=== PATIENT | male | born 1980 | race Caucasian/White ===

== ENCOUNTER 2018-07-01 13:48 | Emergency (ER) | payer OTHER, MEDICAID, SELFPAY ==
[2018-07-01 13:53] VITALS: BP 139/83; PULSE 119; RESP 22; TEMP 36.4; O2SAT 97; BMI 46.6
--- NOTE | 2018-07-01 17:09 | PC.NURSE ---
pt reports, since tuesday, with mid back pain, left hip , down to left leg. pt reports, second rounds of prednisone, today day 4, also with hydrocodone without relief, seen in [facility] ER last , given muscle relaxant and shot, without relief. felt like knife thru the back, with diarrhea last night and now with urine leaking onset yesterday. denies fever, but has cold and hot. denies nausea or vomiting.
[2018-07-01 17:13] VITALS: BP 120/68; PULSE 122; RESP 20; O2SAT 98
--- NOTE | 2018-07-01 17:28 | DI.CT.S_ITS ---
PROCEDURE: CT LUMBAR SPINE WO CON INDICATIONS: low back pain, left leg radiculopathy TECHNIQUE: Noncontrast 3 mm thick sections acquired from the T12 level to the sacrum. Sagittal and coronal reformats were constructed. For radiation dose reduction, the following was used: automated exposure control. COMPARISON: [facility], CR, XR LUMBAR SPINE 2 OR 3 VIEWS, 05/29/2018, 9:57. [facility], US, US ABDOMEN LIMITED, 05/22/2018, 12:09. [facility], CT, CT ABDOMEN PELVIS WITH CONTRAST, 05/22/2018, 10:11. [facility], CT, KIDNEY/ URETER/BLADDER, 07/08/2017, 12:27. FINDINGS: Image quality: Excellent. Bones: There is normal bony alignment. No acute vertebral body compression fractures. There is an inferior endplate Schmorl's node of the L4 vertebral body. Central spinal caliber is of normal overall caliber. No pars defects. There is severe loss of intervertebral disc space height with adjacent reactive endplate changes at L4-L5. There is mild loss of intervertebral disc space height at the remaining lumbar levels. Multilevel anterior osteophyte formation noted. There is moderate facet arthropathy at L4-L5 and L5-S1, worst at L5-S1. No moderate or severe osseous neural foraminal narrowing identified. Soft tissues: There is a small 2.0 cm exophytic hypoattenuating lesion arising from the anterior right kidney which is stable in appearance to comparison exam of 07/08/2017, and was found to represent a renal cortical cyst on comparison ultrasound of 05/22/19. IMPRESSION: Moderate multilevel degenerative changes of the lumbar spine, worst at L4-L5 and L5-S1. Dictated by: Jb Kent M.D. on 07/01/2018 at 18:28 Approved by: Jb Kent M.D. on 07/01/2018 at 18:39
--- NOTE | 2018-07-01 17:33 | ED_ITS ---
HPI - Back Pain/Injury General Chief Complaint: Back Pain/Injury Stated Complaint: PAIN IN SPINE DOWN LEFT LEG Time Seen by Provider: 07/01/18 17:09 Source: patient and family () Mode of arrival: ambulatory Limitations: no limitations History of Present Illness HPI Narrative: This is a 37-year-old male comes to the emergency department with complaint of pain in his lower back and extending into his left leg down to the foot. Patient states that pain has been going on for about a week. Patient has a history of chronic back pain he states that this most recent flare happened when he was getting up out of a chair. He has never had back surgery. He was seen Tuesday by his primary and given prednisone as well as hydrocodone. He states last time he received steroids was helpful but this time it has not been. He was seen at [facility] in telling him and given Toradol as well as Ativan there which was not particularly helpful and discharged. Patient states he is using Flexeril and he thinks maybe today as a teen for muscle relaxation. He states these are not controlling his pain at this time. Patient was pacing and quite uncomfortable unable to sit in the waiting room. Related Data Home Medications Medication Instructions Recorded Confirmed acetaminophen 500 mg PO PRN PRN #0 11/22/16 gemfibrozil 600 mg PO BIDAC #0 11/22/16 lisinopril 20 mg PO QDAY #0 11/22/16 metformin 850 mg PO TIDCC #0 11/22/16 empagliflozin [Jardiance] 25 mg PO QDAY #0 07/08/17 exenatide [Byetta] 0.02 ml SQ BIDAC #0 07/08/17 Previous Rx's Medication Instructions Recorded cephalexin [Keflex] 500 mg PO BID 5 Days #0 cap 07/08/17 diazepam [Valium] 5 mg PO TID-QID PRN #10 tab 07/01/18 meloxicam [Mobic] 7.5 mg PO BID #14 tab 07/01/18 oxycodone-acetaminophen [Percocet] 1 tab PO Q4-6H PRN #7 tab 07/01/18 Allergies Allergy/AdvReac Type Severity Reaction Status Date / Time Penicillins [PENICILLINS] Allergy Intermediate Unverified 07/01/18 13:58 Sulfa (Sulfonamide Allergy Intermediate Unverified 07/01/18 13:58 Antibiotics) [SULFA (SULFONAMIDE ANTIBIOTICS)] Review of Systems Review of Systems ROS Unobtainable: All systems reviewed & are unremarkable except as noted in HPI and below Constitutional Denies chills, Denies fever(s) and Reports weakness ENT Ears, Nose, Mouth, and Throat: Denies neck pain Gastrointestinal Gastrointestinal: Denies fecal incontinence Genitourinary Denies urinary frequency, Denies urinary hesitancy, Reports urinary incontinence (patient unsure) and Denies urinary urgency Musculoskeletal Reports back pain, Denies limited range of motion, Reports muscle weakness, Denies neck pain, Reports numbness, Reports radiating pain into limb (Left leg) and Reports tingling Integumentary/Breasts Denies rash Neurologic Reports numbness, Reports tingling and Reports weakness PFSH Social History Smoking Status: Current every day smoker Social History Smoking Status: Current every day smoker Exam Narrative Exam Narrative: GENERAL: Alert and oriented x three, obese male HEENT: Head normocephalic, atraumatic, EOMI, pupils reactive, face symmetric, moist mucous membranes NECK: Supple, full range of motion CARDIOVASCULAR: Regular rate and rhythm without murmurs, rubs or gallops. RESPIRATORY: Breath sounds equal bilaterally, no wheezes rales or rhonchi. ABDOMEN: Soft, nontender. Normoactive bowel sounds all 4 quadrants. No guarding or rebound, rigidity, no mass : No CVA tenderness in moderate distress. BACK: No cervical, thoracic or lumbar vertebral point tenderness. Generalized tenderness on the back. No redness, no swelling. Patient is resting on his stomach. Patient has decreased range of motion. Patient's gait is antalgic. Rectal exam patient has normal sphincter tone. Muscle strength is 5/5 in lower extremities with flexion extension of the lower legs, patient has slightly decreased plantar flexion extension in the right foot. DTRs are 2/4 and lower extremities. Dorsalis pedis and tibialis pulses are 2+ and lower extremities. Sensation is intact in the lower extremities. EXTREMITIES: Normal range of motion, no clubbing or edema. Neurovascularly intact NEUROLOGICAL: Cranial nerves II through XII grossly intact. Moving all extremities SKIN: Warm, dry, no petechiae, no rashes or lesions. Initial Vital Signs Initial Vital Signs: Vital Signs Temperature 97.6 F 07/01/18 13:53 Pulse Rate 119 H 07/01/18 13:53 Respiratory Rate 22 07/01/18 13:53 Blood Pressure 139/83 07/01/18 13:53 Pulse Oximetry 97 07/01/18 13:53 Course Orders Ordered: Discontinued Medications Diazepam (Valium) 5 mg PO NOW ONE Stop: 07/01/18 17:29 Last Admin: 07/01/18 17:43 Dose: 5 mg Morphine Sulfate (Morphine) 4 mg IM NOW ONE Stop: 07/01/18 17:29 Last Admin: 07/01/18 17:43 Dose: 4 mg Oxycodone/Acetaminophen (Endocet 5/325 Prepack) 1 bottle MISC SEEINSTR ONE Stop: 07/01/18 19:11 Last Admin: 07/01/18 19:23 Dose: 1 bottle Vital Signs - 8 hr 07/01/18 13:53 07/01/18 17:13 Temperature 97.6 F Pulse Rate 119 H 122 H Respiratory Rate 22 20 Blood Pressure 139/83 Blood Pressure [Left Arm] 120/68 Pulse Oximetry 97 98 MDM - Back Pain/Injury MDM Narrative Medical decision making narrative: Patient has some slight decreased with plantar flexion and dorsiflexion on exam. Rectal tone is normal. He has full strength with flexion extension of his lower leg, and patient was able to amb ulate although with an antalgic gait. Discussed with patient we do not have MRI available as he is having he thinks possibly some urinary incontinence issues. We discussed doing CT to see if there is any clear signs of impingement. Patient is comfortable with the plan at this time. We did discuss concern for any kind of spinal cord impingement. CT shows degernative changes and Schmorl's node at L4, patient has mild weakness in foot and possible urinary incontinence although during further discussion he is unsure if it may have been sweat. Plan for follow up outpatient, given narcotic pain control, mobic and muscle relaxant and discussed the MRI is still appropriate for next step. PCP is process of obtaining a prior authorization. Discussed red flag symptoms and reasons to return. Discharge Plan Departure Patient Disposition: Home Clinical Impression: Back pain Qualifiers: Back pain location: low back pain Chronicity: unspecified Back pain laterality: left Sciatica presence: with sciatica Sciatica laterality: sciatica of left side Qualified Code(s): M54.42 - Lumbago with sciatica, left side Discharge Date/Time: 07/01/18 19:26 Interventions: ED Discharge Assessment Last Done: 07/01/18 19:25 Instructions: DI for Low Back Pain Activity Restrictions/Additional Instructions: Call Tuesday morning for follow up with orthopedic surgery. Also call your primary care physician for recheck and to schedule MRI. Your CT shows degenerative changes and Schmorl's node in the L4 vertebral body. Continue medications as prescribed, these medications can make you sleepy do not drive, perform hazards activities or make any major decisions while taking them. Return to the emergency department for rapidly worsening back pain, loss of bowel or bladder control, new numbness, weakness, loss of sensation, inability to move her legs secondary to weakness or other new or concerning symptoms. Prescriptions: New meloxicam [Mobic] 7.5 mg tablet 7.5 mg PO BID Qty: 14 RF: 0 oxycodone-acetaminophen [Percocet] 5-325 mg tablet 1 tab PO Q4-6H PRN (Reason: pain) Qty: 7 RF: 0 diazepam [Valium] 5 mg tablet 5 mg PO TID-QID PRN (Reason: muscle spasm) Qty: 10 RF: 0 No Action lisinopril 20 MG tablet 20 mg PO QDAY Qty: 0 RF: 0 gemfibrozil 600 MG tablet 600 mg PO BIDAC Qty: 0 RF: 0 metformin 850 MG tablet 850 mg PO TIDCC Qty: 0 RF: 0 acetaminophen 500 MG tablet 500 mg PO PRN PRNQty: 0 RF: 0 empagliflozin [Jardiance] 25 MG tablet 25 mg PO QDAY Qty: 0 RF: 0 exenatide [Byetta] 5 MCG/0.02 ML pen injector 0.02 ml SQ BIDAC Qty: 0 RF: 0 cephalexin [Keflex] 500 MG capsule 500 mg PO BID 5 Days Qty: 0 RF: 0 Referrals: Taty Hawk MD [Physician] - Stand Alone Forms: Work Release Note
[2018-07-01] MEDS: diazePAM 5 MG TABLET PO (17:43)
[2018-07-01] MEDS: MORPHINE 4 MG/ML INJ IM (17:43)
[2018-07-01 19:11] VITALS: BP 112/69; PULSE 83; RESP 16; TEMP 36.7; O2SAT 95
[2018-07-01] MEDS: OXYCODONE/APAP 5/325 PREPACK 1 BOTTLE MISC (19:23)
== END 2018-07-01 19:26 | disposition home or self-care (01) ==
PROVIDERS: Emergency Provider Emergency Medicine
DX: M54.42 Lumbago with sciatica, left side (principal)
CPT/HCPCS: 72131; 96372; 99283; 99284; J2270

== ENCOUNTER 2018-07-03 10:44 | Emergency (ER) | payer OTHER, MEDICAID, SELFPAY ==
[2018-07-03 10:54] VITALS: BP 103/64; PULSE 95; RESP 23; TEMP 37; O2SAT 100; BMI 47.5
--- NOTE | 2018-07-03 11:05 | DI.MRI.S_ITS ---
PROCEDURE: MR LUMBAR SPINE WO CON INDICATIONS: back pain, occasional incontinence, pain left leg TECHNIQUE: Noncontrast sagittal T1 spin echo and T2 fast echo, sagittal STIR, axial T1 and T2 fast spin echo through the lumbar spine. In cases with scoliosis, additional coronal T2 fast spin echo may be performed. COMPARISON: [facility], CT, KIDNEY/ URETER/BLADDER, 07/08/2017, 12:27. [facility], CT, CT ABDOMEN PELVIS WITH CONTRAST, 05/22/2018, 10:11. [facility], CR, XR LUMBAR SPINE 2 OR 3 VIEWS, 05/29/2018, 9:57. FINDINGS: Image quality: Excellent. Alignment and Curvature: There is normal bony alignment. Bone Marrow: Marrow is of normal overall signal. No acute vertebral body compression fractures. Spinal Cord: Conus medullaris terminates at the T12 level. Visualized cord demonstrates normal signal and size. Paraspinous Soft Tissues: No paravertebral masses. L1-L2: Mild disc desiccation. Broad-based disc bulge. Mild facet ligamentum flavum hypertrophy. No canal stenosis. No neural foraminal narrowing. L2-L3: Mild disc desiccation and height loss. Broad-based disc bulge. Mild facet ligamentum flavum hypertrophy. No canal stenosis. No foraminal stenosis. L3-L4: Mild disc desiccation and height loss. Broad-based disc bulge. Moderate facet ligamentum flavum hypertrophy. There is a 1.0 x 0.7 x 1.5 cm left paracentral disc protrusion which displaces the thecal sac rightward and abuts the exiting nerve root. No neural foraminal stenosis. L4-L5: Severe disc desiccation and height loss. Severe facet ligamentum flavum hypertrophy. Mild canal stenosis. No neural foraminal narrowing. L5-S1: Mild disc desiccation. Broad-based disc bulge. Moderate facet ligamentum flavum hypertrophy. No canal stenosis. No neural foraminal narrowing. IMPRESSION: 1. Left paracentral L3-4 disc protrusion with resultant narrowing of the canal, with rightward displacement of the thecal sac, and abutment of the exiting left nerve root. This finding was discussed with Dr. Beltran at 1:37 PM on 07/03/18. 2. Disc desiccation and height loss of the lumbar spine most severe at L4-5. 3. No other canal stenosis or foraminal narrowing of the lumbar spine. Dictated by: Mariama Baum M.D. on 07/03/2018 at 13:34 Approved by: Mariama Baum M.D. on 07/03/2018 at 13:42
--- NOTE | 2018-07-03 11:27 | ED_ITS ---
HPI - Back Pain/Injury General Chief Complaint: Back Pain/Injury Stated Complaint: WORSENING BLADDER CONTROL,FEELING INTO LT LEG GONE Time Seen by Provider: 07/03/18 11:05 Source: patient and family () Mode of arrival: ambulatory Limitations: no limitations History of Present Illness HPI Narrative: This is a 37-year-old gentleman comes to the emergency department with complaint of back pain. The patient was seen by myself over the weekend. He was encouraged to return if he was having some issues with possible urinary incontinence as well as a little bit of weakness in his foot. He states over the weekend he has continued to have more frequent dribbling of urine, patient has not had any fecal incontinence. He feels like his left lower leg has gone more numb in entirety was having some tingling before and he is noting some sort of saddle anesthesia or numbness in the groin. Patient has not had prior back surgeries but did have prior back injuries. Patient has not any fevers no cold cough congestion, no chest pain or shortness of breath. He was sent on some additional medication for pain which he states is not controlling it well but is better than when he had been on before. Related Data Home Medications Medication Instructions Recorded Confirmed acetaminophen 500 mg PO PRN PRN #0 11/22/16 07/03/18 gemfibrozil 600 mg PO BIDAC #0 11/22/16 07/03/18 lisinopril 20 mg PO QPM #0 11/22/16 07/03/18 metformin 850 mg PO TIDCC #0 11/22/16 07/03/18 Jardiance 25 mg PO DAILY #0 07/08/17 07/03/18 dulaglutide [Trulicity] 1.2 mg SUBCUT QWEEK 07/03/18 07/03/18 hydrocodone-acetaminophen 1 tab PO PRN PRN 07/03/18 07/03/18 pioglitazone 30 mg PO DAILY 07/03/18 07/03/18 sildenafil 1 - 3 tab PO DIRECTED 07/03/18 07/03/18 tizanidine 4 mg PO BID 07/03/18 07/03/18 Previous Rx's Medication Instructions Recorded diazepam [Valium] 5 mg PO TID-QID PRN #10 tab 07/01/18 meloxicam [Mobic] 7.5 mg PO BID #14 tab 07/01/18 oxycodone-acetaminophen [Percocet] 1 tab PO Q4-6H PRN #7 tab 07/01/18 diazepam [Valium] 5 mg PO TID-QID PRN #20 tab 07/03/18 methylprednisolone [Medrol (Michele)] See Rx Instructions .ROUTE 07/03/18 .COMPLEX #21 each oxycodone-acetaminophen [Percocet] 1 tab PO Q4-6H PRN #20 tab 07/03/18 Allergies Allergy/AdvReac Type Severity Reaction Status Date / Time Penicillins [PENICILLINS] Allergy Intermediate Verified 07/03/18 11:27 Sulfa (Sulfonamide Allergy Intermediate Verified 07/03/18 11:27 Antibiotics) [SULFA (SULFONAMIDE ANTIBIOTICS)] Review of Systems Constitutional Denies chills, Denies fever(s), Denies frequent falls and Reports weakness ENT Ears, Nose, Mouth, and Throat: Denies nasal congestion Cardiovascular Denies chest pain, Denies syncope, Denies dyspnea and Denies dyspnea on exertion Respiratory Denies cough, Denies dyspnea and Denies dyspnea on exertion Gastrointestinal Gastrointestinal: Reports fecal incontinence (seepage, no tram incontinence) Genitourinary Reports urinary incontinence (dribbling) Musculoskeletal Reports as per HPI, Reports abnormal gait, Reports back pain, Reports limited range of motion, Reports muscle weakness (Left leg), Reports numbness (Left leg), Reports radiating pain into limb (Left leg) and Reports tingling Integumentary/Breasts Denies rash Neurologic Reports abnormal gait, Denies syncope, Denies frequent falls, Reports numbness (Left leg), Reports radicular pain, Reports tingling and Reports weakness PFSH Medical History Chronic back pain (Acute) Diabetes (Acute) Hypertension (Acute) Social History marital status: Smoking Status: Current every day smoker Social History marital status: Smoking Status: Current every day smoker Exam Narrative Exam Narrative: GENERAL: Alert and oriented x three, obese male in moderate distress. HEENT: Head normocephalic, atraumatic, EOMI, pupils reactive, face symmetric, moist mucous membranes NECK: Supple, full range of motion CARDIOVASCULAR: Regular rate and rhythm without murmurs, rubs or gallops. RESPIRATORY: Breath sounds equal bilaterally, no wheezes rales or rhonchi. ABDOMEN: Soft, nontender. Normoactive bowel sounds all 4 quadrants. No guarding or rebound, rigidity, no mass, positive rectal tone. : No CVA tenderness BACK: No cervical, thoracic or lumbar vertebral point tenderness. Patient has decreased range of motion. Patient's gait is antalgic. Rectal exam is normal tone. Muscle strength is 5/5 in right lower extremity, 4/5 in left lower extremity, patient is 4/5 dorsiflexion/plantarflexion on left, 5/5 on right. 2+ pulses lower extremities. Patient is standing during evaluation and sits on bed but quite uncomfortable trying to be seated. Patient has sensation to touch in both lower extremities. No saddle anesthesia on exam. EXTREMITIES: See above. NEUROLOGICAL: Cranial nerves II through XII grossly intact. Moving all extremities. SKIN: Warm, dry, no petechiae, no rashes or lesions. Initial Vital Signs Initial Vital Signs: Vital Signs Temperature 98.6 F 07/03/18 10:54 Pulse Rate 95 H 07/03/18 10:54 Respiratory Rate 23 07/03/18 10:54 Blood Pressure 103/64 07/03/18 10:54 Pulse Oximetry 100 07/03/18 10:54 Course Orders Ordered: ED Orders 07/03/18 11:05 MR lumbar spine wo con Stat 07/03/18 11:22 Complete Blood Count AUTO DIFF Stat Comprehensive Metabolic Panel Stat 07/03/18 13:25 Urine Microscopic Stat Discontinued Medications Dexamethasone (Decadron) 10 mg IV NOW ONE Stop: 07/03/18 13:44 Last Admin: 07/03/18 13:49 Dose: 10 mg Diazepam (Valium) 5 mg PO NOW ONE Stop: 07/03/18 11:37 Last Admin: 07/03/18 11:46 Dose: 5 mg Hydromorphone HCl (Dilaudid) 1 mg IV NOW ONE Stop: 07/03/18 13:44 Last Admin: 07/03/18 13:49 Dose: 1 mg Morphine Sulfate (Morphine) 4 mg IV NOW ONE Stop: 07/03/18 11:37 Last Admin: 07/03/18 11:46 Dose: 4 mg Vital Signs - 8 hr 07/03/18 13:00 07/03/18 14:45 Pulse Rate 78 Respiratory Rate 18 19 Blood Pressure [Right Wrist] 92/63 144/82 H Pulse Oximetry 98 96 MDM - Back Pain/Injury Lab Data Attestation: I reviewed the patient's lab results. Result diagrams: 07/03/18 11:22 07/03/18 11:22 Lab Results 07/03/18 07/03/18 07/03/18 Range/Units 11:22 11:22 13:25 WBC 8.4 (4.5-11.0) X10^3/uL RBC 5.02 (4.5-5.9) X10^6/uL Hgb 15.8 (13.5-17.5) g/dL Hct 45.6 (41-53) % MCV 90.7 (80-100) fL MCH 31.5 (26-34) PG MCHC 34.8 (30-36) % RDW 13.2 (11.6-14.8) % Plt Count 181 (150-400) X10^3/uL Neut % (Auto) Not Reportable Lymph % (Auto) Not Reportable [place] % (Auto) Not Reportable Eos % (Auto) Not Reportable Baso % (Auto) Not Reportable Lymph # (Auto) Not Reportable [place] # (Auto) Not Reportable Baso # (Auto) Not Reportable Total Counted 100 Seg Neutrophils % 62.0 (38-70) % Band Neutrophils % 4.0 (3-7) % Lymphocytes % (Manual) 24.0 L (25-45) % Atypical Lymphs % 2.0 H ( - 0) % Monocytes % (Manual) 5.0 (2-11) % Eosinophils % (Manual) 1.0 L (2-4) % Basophils % (Manual) 1.0 (0-1) % Metamyelocytes % 1.0 H (-0) % Neutrophils # (Manual) 5544 (8083-5182) /uL RBC Morphology Normal morphology Sodium 138 (137-145) mmol/L Potassium 4.3 (3.4-5.1) mmol/L Chloride 106 (98-107) mmol/L Carbon Dioxide 21 L (22-32) mmol/L BUN 28 H (9-20) mg/dL Creatinine 0.90 (0.66-1.25) mg/dL Estimated GFR > 60.0 (>60) mL/min BUN/Creatinine Ratio 31.1 H (6-22) Glucose 127 H (70-100) mg/dL Calcium 9.3 (8.4-10.2) mg/dL Total Bilirubin 0.3 (0.2-1.3) mg/dL AST 14 L (17-59) IU/L ALT 24 (21-72) IU/L Alkaline Phosphatase 61 (38-126) U/L Total Protein 7.1 (6.3-8.2) g/dL Albumin 4.2 (3.5-5.0) g/dL Globulin 2.9 (1.7-4.1) g/dL Albumin/Globulin Ratio 1.4 (1.0-2.8) Urine RBC 0-1/hpf (0-5/HPF) Urine WBC 0-1/hpf (0-5/HPF) Ur Squamous Epith Cells 0-1 /hpf Urine Bacteria Occasional (0-1) (None) Urine Sperm Few Ur Culture Indicated? Cult not indicated Urine Dip Bedside Urine Glucose 500 mg/dl Bedside Urine Bilirubin - Negative Bedside Urine Ketone - Negative Urine Specific [place] 1.020 Bedside Urine Occult Blood +/- Bedside Urine pH 6.0 Bedside Urine Protein +/- 15 Bedside Urine Urobilinogen - Negative Bedside Urine Nitrite - Negative Bedside Urine Leukocytes - Negative Esterase Imaging Data MRI Lumbar spine: Radiologist's impression: [place] [address] Magnetic Resonance Report Signed Patient: Jany Hoover LMR#: [id number] : 1980Acct:[id number] Age/Sex: 37 / MDate of Service: 07/03/18 Loc: ED Accession Number: [id number] Procedure: MR lumbar spine wo con Ordering Provider: Kelsey Beltran D.O. PROCEDURE: MR LUMBAR SPINE WO CON INDICATIONS: back pain, occasional incontinence, pain left leg TECHNIQUE: Noncontrast sagittal T1 spin echo and T2 fast echo, sagittal STIR, axial T1 and T2 fast spin echo through the lumbar spine. In cases with scoliosis, additional coronal T2 fast spin echo may be performed. COMPARISON: [facility], CT, KIDNEY/ URETER/BLADDER, 07/08/2017, 12:27. [facility], CT, CT ABDOMEN PELVIS WITH CONTRAST, 05/22/2018, 10:11. [facility], CR, XR LUMBAR SPINE 2 OR 3 VIEWS, 05/29/2018, 9:57. FINDINGS: Image quality: Excellent. Alignment and Curvature: There is normal bony alignment. Bone Marrow: Marrow is of normal overall signal. No acute vertebral body compression fractures. Spinal Cord: Conus medullaris terminates at the T12 level. Visualized cord demonstrates normal signal and size. Paraspinous Soft Tissues: No paravertebral masses. L1-L2: Mild disc desiccation. Broad-based disc bulge. Mild facet ligamentum flavum hypertrophy. No canal stenosis. No neural foraminal narrowing. L2-L3: Mild disc desiccation and height loss. Broad-based disc bulge. Mild facet ligamentum flavum hypertrophy. No canal stenosis. No foraminal stenosis. L3-L4: Mild disc desiccation and height loss. Broad-based disc bulge. Moderate facet ligamentum flavum hypertrophy. There is a 1.0 x 0.7 x 1.5 cm left paracentral disc protrusion which displaces the thecal sac rightward and abuts the exiting nerve root. No neural foraminal stenosis. L4-L5: Severe disc desiccation and height loss. Severe facet ligamentum flavum hypertrophy. Mild canal stenosis. No neural foraminal narrowing. L5-S1: Mild disc desiccation. Broad-based disc bulge. Moderate facet ligamentum flavum hypertrophy. No canal stenosis. No neural foraminal narrowing. IMPRESSION: 1. Left paracentral L3-4 disc protrusion with resultant narrowing of the canal, with rightward displacement of the thecal sac, and abutment of the exiting left nerve root. This finding was discussed with Dr. Beltran at 1:37 PM on 07/03/18. 2. Disc desiccation and height loss of the lumbar spine most severe at L4-5. 3. No other canal stenosis or foraminal narrowing of the lumbar spine. Dictated by: Mariama Baum M.D. on 07/03/2018 at 13:34 Approved by: Mariama Baum M.D. on 07/03/2018 at 13:42 MDM Narrative Medical decision making narrative: Patient was seen by myself on 07/01/2018. We discussed that his symptoms he was describing or concerning he might be developing some knee issues on the night. MRI was not available we did discuss transfer for MRI at that time but patient deferred negative CT scan which did show changes to the the L4 region in particular. Patient was asked return if any worsening of his symptoms for MRI. Patient has had some increased dribbling of urine, he has had increasing pain feels like his left leg is numb and its entirety. He is feels like he is having a little bit more weakness. MRI was ob tained. Shows disc protrusion, there is displacement of the thecal sac rightward and abutting the exiting nerve root. No for neural foraminal stenosis left paracentral L3-4 disc protrusion with narrowing of canal. Spoke with Dr. Dodson from orthopedic surgery regarding MRI which was reviewed. He feels that patient's risk for cauda equina is a virtually nil he does state that he is definitely having some protrusion onto the nerve root that would affect that leg. Patient and I discussed Dr. Dodson can see him later this week to get him in for surgery. He would recommend Medrol Dosepak. Discussed with patient they are comfortable with this plan. Discussed red flag signs/symptoms, etc. Discharge Plan Departure Patient Disposition: Home Clinical Impression: Lumbar radiculopathy, Protrusion of intervertebral disc Discharge Date/Time: 07/03/18 14:59 Interventions: ED Discharge Assessment Last Done: 07/03/18 14:58 Instructions: DI for Lumbar Radiculopathy Activity Restrictions/Additional Instructions: Call the orthopedic surgery office to set up an appointment. Let them know Dr. Dodson would like you seen this week to evaluate for surgery. Continue medications as prescribed. Stop prednisone and start medrol dose pack. Return to ER for fevers, loss of bladder or bowel control, inability to lift or move your leg, rapidly worsening symptoms or other new or concerning symptoms. Prescriptions: New oxycodone-acetaminophen [Percocet] 5-325 mg tablet 1 tab PO Q4-6H PRN (Reason: pain) Qty: 20 RF: 0 diazepam [Valium] 5 mg tablet 5 mg PO TID-QID PRN (Reason: muscle spasm) Qty: 20 RF: 0 methylprednisolone [Medrol (Michele)] 4 mg tablets,dose pack See Rx Instructions .ROUTE .COMPLEX Qty: 21 RF: 0 No Action lisinopril 20 MG tablet 20 mg PO QPM Qty: 0 RF: 0 gemfibrozil 600 MG tablet 600 mg PO BIDAC Qty: 0 RF: 0 metformin 850 MG tablet 850 mg PO TIDCC Qty: 0 RF: 0 acetaminophen 500 MG tablet 500 mg PO PRN PRN (Reason: pain) Qty: 0 RF: 0 Jardiance 25 MG tablet 25 mg PO DAILY Qty: 0 RF: 0 pioglitazone 30 mg tablet 30 mg PO DAILY RF: 0 tizanidine 4 mg tablet 4 mg PO BID RF: 0 hydrocodone-acetaminophen 5-325 mg tablet 1 tab PO PRN PRN (Reason: pain) RF: 0 Trulicity 1.5 mg/0.5 mL pen injector 1.2 mg subcut QWEEK RF: 0 sildenafil 1 - 3 tab PO DIRECTED RF: 0 meloxicam [Mobic] 7.5 mg tablet 7.5 mg PO BID Qty: 14 RF: 0 oxycodone-acetaminophen [Percocet] 5-325 mg tablet 1 tab PO Q4-6H PRN (Reason: pain) Qty: 7 RF: 0 diazepam [Valium] 5 mg tablet 5 mg PO TID-QID PRN (Reason: muscle spasm) Qty: 10 RF: 0 Referrals: Alfredo Dodson MD [Physician] - Stand Alone Forms: Work Release Note
[2018-07-03] MEDS: diazePAM 5 MG TABLET PO (11:46)
[2018-07-03] MEDS: MORPHINE 4 MG/ML INJ IV (11:46)
[2018-07-03 11:48] LABS: Alanine Aminotransferase 24 IU/L (21-72); Albumin 4.2 g/dL (3.5-5.0); Albumin Globulin Ratio 1.4 (1.0-2.8); Alkaline Phosphatase 61 U/L (38-126); Aspartate Aminotransferase 14 IU/L (17-59); BUN Creatinine Ratio 31.1 (6-22); Bilirubin Total 0.3 mg/dL (0.2-1.3); Blood Urea Nitrogen 28 mg/dL (9-20); Calcium 9.3 mg/dL (8.4-10.2); Carbon Dioxide 21 mmol/L (22-32); Chloride 106 mmol/L (98-107); Estimated Glomerular Filt Rate > 60.0 mL/min (>60); Globulin 2.9 g/dL (1.7-4.1); Glucose 127 mg/dL (70-100); HEMOLYSIS < 15 (0-50); Potassium 4.3 mmol/L (3.4-5.1); Sodium 138 mmol/L (137-145); Total Protein 7.1 g/dL (6.3-8.2)
[2018-07-03 11:51] LABS: Hematocrit 45.6 % (41-53); Hemoglobin 15.8 g/dL (13.5-17.5); Mean Corpuscular HGB Conc 34.8 % (30-36); Mean Corpuscular Hemoglobin 31.5 PG (26-34); Mean Corpuscular Volume 90.7 fL (80-100); Platelet Count 181 X10^3/uL (150-400); Red Blood Cell Count 5.02 X10^6/uL (4.5-5.9); Red Cell Distribution Width 13.2 % (11.6-14.8); White Blood Cell Count 8.4 X10^3/uL (4.5-11.0)
[2018-07-03 12:00] VITALS: BP 90/64; PULSE 83; RESP 18; O2SAT 97
[2018-07-03 12:23] LABS: Add Manual Diff / Slide Review YES
[2018-07-03 12:56] LABS: Neutrophils Absolute Manual 5544 /uL (3000-5900); RBC Morphology Normal Morphology; Total Cells Counted 100
[2018-07-03 13:00] VITALS: BP 92/63; RESP 18; O2SAT 98
[2018-07-03] MEDS: DEXAMETHASONE 10 MG/ML VIAL IV (13:49)
[2018-07-03] MEDS: HYDROMORPHONE 1 MG INJ IV (13:49)
[2018-07-03 14:05] LABS: RBC Urine 0-1/HPF (0-5/HPF); Squamous Epithelial Cell Urine 0-1 /HPF; WBC Urine 0-1/HPF (0-5/HPF)
[2018-07-03 14:07] LABS: Bacteria Urine Occasional (0-1); Culture Indicated Urine Cult Not Indicated; Sperm Urine FEW
[2018-07-03 14:45] VITALS: BP 144/82; PULSE 78; RESP 19; O2SAT 96
== END 2018-07-03 14:59 | disposition home or self-care (01) ==
PROVIDERS: Emergency Provider Emergency Medicine
DX: M54.16 Radiculopathy, lumbar region (principal); M51.27 Other intervertebral disc displacement, lumbosacral region
CPT/HCPCS: 36591; 72148; 80053; 81003; 81015; 85025; 96374; 96375; 99283; 99284; J1100; J1170; J2270

== ENCOUNTER 2018-08-11 13:19 | Day surgery (SDC) | payer OTHER, MEDICAID, SELFPAY ==
[2018-08-03 13:12] VITALS: BMI 47.5
[2018-08-11] VITALS (7 sets, daily range): BP systolic 94–148; BP diastolic 50–95; PULSE 76–105; RESP 11–16; TEMP 36.2–36.9; O2SAT 94–97; BMI 49.7
--- NOTE | 2018-08-11 | DI.RAD.S_ITS ---
PROCEDURE: XR LUMBAR SPINE 2-3V INDICATIONS: L3-4 MICRODISCECTOMY LEFT TECHNIQUE: 2 views of the lumbar spine were acquired. COMPARISON: None. FINDINGS: 2 spot fluoroscopic intraoperative images demonstrating a surgical instrument with the tip projecting in the posterior paraspinal soft tissues at the level of the L3-L4 disc space. Dictated by: Drew Handley M.D. on 08/11/2018 at 16:59 Approved by: Drew Handley M.D. on 08/11/2018 at 16:59
[2018-08-11] MEDS: LACTATED RINGERS 1,000 ML 42 ML IV (13:57)
--- NOTE | 2018-08-11 14:38 | PM.PREOP ---
Pre-operative Note Interval Note History & Physical reviewed/Exam performed by Physician: Yes Changes to H&P: No
[2018-08-11] MEDS: CLINDAMYCIN 900 MG/50 ML PIGGYBACK 50 MG IV (14:55)
--- NOTE | 2018-08-11 15:30 | SUR.OPER ---
Prone on spine table, head in foam head support, padded chest and pelvic supports, gel pad at knees, lower legs supported by pillows; nipples, genitalia and toes free of pressure, arms secured on foam padded arm boards at <90 degrees abduction. Tape over blanket at thigh secured to table.
[2018-08-11] MEDS: methylPREDNISolone acet DEPO 40 MG/ML VIAL INJ (15:38)
[2018-08-11] MEDS: BUPIVACAINE 0.25% W/ EPI 50 ML VIAL INJ (15:39)
--- NOTE | 2018-08-11 16:27 | PM.OP.1 ---
Operative Date/Time/Diagnoses Date of procedure: 08/11/18 Time of procedure: 14:27 Pre-op diagnosis: 1. L3-4 disc herniation 2. L3-4 spinal stenosis Post-op diagnosis: same Procedure & Clinicians Procedure: 1. L3-4 hemilaminectomy 2. Utilization of microsurgical technique and operating microscope Same procedure as scheduled: Yes Indications: Patient has been having chronic back pain and worsening lumbar radiculopathy. Patient failed multiple conservative management with worsening pain weakness and numbness in his lower extremity. Patient has been having difficulty performing activity of daily living. After discussing risks benefits of treatment options, patient elected proceed with surgery. Surgeon: Alfredo Dodson Lead Technologist In Cytogenetics: Keshia Alba Click Yes if Unassisted: No Anesthesia Type: General Operative Notes Closure Type: primary Specimen(s): none sent Estimated Blood Loss (mL): 10 Blood products transfused: none Procedure in detail: Patient was seen in the preoperative area. Risks and benefits of the surgery was discussed with the patient. Informed consent was obtained from the patient and placed in the chart. Surgical site was marked. Patient was taken to the operative room. General anesthesia was administered. Prophylactic antibiotic was given to the patient less than 30 min before the incision was made. Patient was placed into a prone position on the [place] table. Patient's back was then prepped and draped in the sterile fashion. Time-out was performed at this time. Using AP and lateral C-arm imaging the interval between L3-4 was identified and marked on patient's back. A 1 inch incision 1 in from midline was made on the left side. The fascia was incised in line with skin incision. Globus MARS retractors was placed inside the incision and docked onto the L3 lamina. Using microsurgical technique and operating microscope, a L3-4 laminotomy was performed using a Kerrison rongeur. Liagamentum flavum was resected at the site of the laminotomy. The disc space at L3-4 was identified. Microdiscectomy was performed by incising the annulus with #11 blade. Microcurettes and pituitary was used to removed herniated disc fragments of disc from the epidural space. Some of the disc material was intimately adherent to the underside of the thecal sac. Attempted removal could potentially cause a dural tear. Skin VAC pressure was already relieved by performing the partial microdiskectomy and hemilaminectomy. Decision at this time was to leave the remaining disc material in order to prevent injury to patient's neurologic structure. After the microdiskectomy was completed, the area medial lateral superior and inferior to the area of the microdiskectomy was inspected and explored using a micro curette. No other impinging structure was identified. The wound was then irrigated with sterile normal saline. 40 mg Depo-Medrol was placed into the epidural space. The deep fascia was closed with 1-0 Vicryl. The subcutaneous tissue was closed with 2-0 Vicryl. The skin was closed with dada. Patient tolerated the procedure well. There were no complications. Patient was transferred recovery room in stable condition. Complications: none Condition: stable Disposition: same day surgery Plan for aftercare: Discharge to home
[2018-08-11] MEDS: fentaNYL 100 MCG/2 ML INJ IV (16:46)
[2018-08-11] MEDS: hydrOXYzine pamoate 25 MG CAPSULE 50 MG PO (16:51)
[2018-08-11] MEDS: OXYCODONE/ACETAMINOPHEN 5/325 TABLET 1 TAB PO ×2 (16:59→17:25)
--- NOTE | 2018-08-11 17:09 | SUR.PHASEI ---
Pt stood at bedside to void.
== END 2018-08-11 17:30 | disposition home or self-care (01) ==
PROVIDERS: Visit Provider Orthopaedic Surgery Orthopaedic Surgery of the Spine
PROC: (CPT 63030; principal; 2018-08-11 15:15)
DX: M51.16 Intervertebral disc disorders with radiculopathy, lumbar region (principal); I10 Essential (primary) hypertension; E11.9 Type 2 diabetes mellitus without complications; G47.33 Obstructive sleep apnea (adult) (pediatric); F17.210 Nicotine dependence, cigarettes, uncomplicated; Z79.84 Long term (current) use of oral hypoglycemic drugs
CPT/HCPCS: 63030; 72100; 76000; J0330; J1030; J2250; J2405; J2704; J3010

== ENCOUNTER 2018-12-05 18:59 | Emergency (ER) | payer OTHER, MEDICAID, SELFPAY ==
[2018-12-05 19:07] VITALS: BP 144/88; PULSE 97; RESP 20; TEMP 36.5; O2SAT 100
--- NOTE | 2018-12-05 19:23 | DI.RAD.S_ITS ---
PROCEDURE: XR CHEST 1V INDICATIONS: chest pain TECHNIQUE: One view of the chest was acquired. COMPARISON: None. FINDINGS: Surgical changes and devices: None. Lungs and pleura: Lungs are clear. No pleural effusions or pneumothorax. Mediastinum: Mediastinal contours appear normal. Heart size is normal. Bones and chest wall: No suspicious bony lesions. Overlying soft tissues appear unremarkable. IMPRESSION: Chest without acute cardiopulmonary abnormalities. Dictated by: Bereket Geronimo M.D. on 12/05/2018 at 20:18 Approved by: Bereket Geronimo M.D. on 12/05/2018 at 20:20
--- NOTE | 2018-12-05 19:28 | ED_ITS ---
HPI - Arrhythmia/Palpitations General Chief Complaint: Arrhythmia/Palpitations Stated Complaint: HEART IS RACING Time Seen by Provider: 12/05/18 19:26 Source: patient and family Mode of arrival: ambulatory Limitations: no limitations History of Present Illness HPI narrative: 38-year-old male comes in with complaint of not having pain in his back. Patient states that he typically has back pain. He saw me in the p ast for his back pain, he followed up with Dr. Yen had surgery in July for his back. He states it did not make much difference but patient had been continuing. He states today about 2 hours ago his back pain resolved he states he has also had a metallic taste in his mouth for several weeks. He has thigh has felt swollen on the left side. He also noted his heart feels fast earlier. Patient states he felt a little hot sometimes cold. He has felt a little short of breath for the last 2 weeks. He states it is intermittent and does not seem to be related to exertion. No chest pain or pressure. No nausea no vomiting. No issues with bowel movements. Patient has had some chronic issues with mild urinary incontinence. This is not new for him. He denies any other changes. No other changes to his medications. Related Data Home Medications Medication Instructions Recorded Confirmed gemfibrozil 600 mg PO BIDAC #0 11/22/16 08/11/18 lisinopril 20 mg PO QPM #0 11/22/16 08/11/18 metformin 850 mg PO TID #0 11/22/16 08/11/18 Jardiance 25 mg PO DAILY #0 07/08/17 08/11/18 dulaglutide 1.5 mg SUBCUT QWEEK 07/03/18 08/11/18 hydrocodone-acetaminophen 1 tab PO PRN PRN 07/03/18 08/11/18 pioglitazone 30 mg PO DAILY 07/03/18 08/11/18 sildenafil (antihypertensive) 20 mg PO TID 07/03/18 08/11/18 tizanidine 4 mg PO TID 07/03/18 08/11/18 Combivent Respimat 1 puff INHALATION QID 08/04/18 08/11/18 azelastine 2 spray INTRANASAL BID PRN 08/04/18 08/11/18 diazepam [Valium] 7.5 mg PO Q6H 08/04/18 08/11/18 meloxicam [Mobic] 15 mg PO DAILY 08/04/18 08/11/18 methylprednisolone [Medrol (Michele)] 1 tab PO DAILY 08/11/18 08/11/18 Previous Rx's Medication Instructions Recorded hydrocodone-acetaminophen 1 tab PO Q4-6H PRN #40 tab 08/11/18 Allergies Allergy/AdvReac Type Severity Reaction Status Date / Time Penicillins [PENICILLINS] Allergy Severe Anaphylaxis Verified 08/11/18 13:35 Sulfa (Sulfonamide Allergy Severe Anaphylaxis Verified 08/11/18 13:35 Antibiotics) [SULFA (SULFONAMIDE ANTIBIOTICS)] Review of Systems Review of Systems ROS Unobtainable: All systems reviewed & are unremarkable except as noted in HPI and below Constitutional Denies chills, Denies fever(s), Denies lethargy and Denies weakness Cardiovascular Denies chest pain, Denies chest pain at rest, Denies chest pain with activity, Denies diaphoresis, Denies syncope, Reports rapid heart rate, Denies edema, Denies irregular heart rhythm, Denies lightheadedness, Denies palpitations, Reports dyspnea, Denies dyspnea on exertion and Denies orthopnea Respiratory Denies change in phlegm color, Denies chest congestion, Denies cough, Denies excessive phlegm production, Reports dyspnea, Denies dyspnea on exertion, Denies stridor and Denies wheezing Gastrointestinal Gastrointestinal: Denies abdominal pain, Denies melena, Denies hematochezia, Denies change in bowel habits, Denies diarrhea, Denies nausea and Denies vomiting Genitourinary Denies difficulty urinating, Denies dysuria, Denies flank pain, Denies urinary frequency, Reports urinary hesitancy, Reports urinary incontinence and Denies urinary urgency Musculoskeletal Denies back pain (resolved.), Denies radiating pain into limb (resolved usually in left leg.) and Reports tingling Integumentary/Breasts Denies erythema and Denies rash Neurologic Denies syncope, Reports tingling and Denies weakness Endocrine Denies palpitations Allergic/Immunologic Denies wheezing [facility] Medical History Chronic back pain (Acute) Current every day smoker (Acute) Diabetes (Acute) Fatty liver (Acute) Hypertension (Acute) Kidney stones (Acute) Numbness (Acute) Splenomegaly (Acute) Surgical History Hx of cholecystectomy (Acute) Social History marital status: household members: significant other Smoking Status: Current every day smoker Social History marital status: household members: significant other Smoking Status: Current every day smoker Exam Narrative Exam Narrative: GEN: Obese well-appearing male, alert and oriented x 3, patient appears to be in no acute distress. HEENT: Atraumatic, pupils are equal round reactive to light, extraocular movements are intact. HEART: Regular rate and rhythm without murmur, clicks, rubs. LUNGS:Lungs clear to auscultation, no wheezes, rales, crackles, chest moves symmetrically ABD:bowel sounds normal, soft, non-tender, no guarding, rebound, rigidity, no masses noted, no hepatosplenomegaly :No CVA tenderness MSCL: Non-tender, patient does feel like he has some slight fullness in the left upper thigh compared to the right although no clear nodules, mass or hematoma palpated. There is no skin changes. Area is nontender to touch. 2+ femoral pulse. No swelling of the left in comparison to the right leg that I am able to appreciate but it would be difficult based on patient's habitus. No muscle atrophy, muscles strength 5/5 upper and lower extremities, full range of motion, normal gait NEURO:CN 2-12 intact, sensation normal. Initial Vital Signs Initial Vital Signs: Vital Signs Temperature 97.7 F 12/05/18 19:07 Pulse Rate 97 H 12/05/18 19:07 Respiratory Rate 20 12/05/18 19:07 Blood Pressure 144/88 H 12/05/18 19:07 Pulse Oximetry 100 12/05/18 19:07 Scores PERC Score Age greater than or equal to 50 years: No Heart rate greater than or equal to 100 bpm: No Room Air O2 Sat less than 95%: No Unilateral leg swelling: Yes Recent trauma or surgery: Yes (in July) Hemoptysis: No Prior PE or DVT: No Hormone Use: No Total PERC Score: 2 Course Orders Ordered: ED Orders 12/05/18 19:15 Complete Blood Count AUTO DIFF Stat Comprehensive Metabolic Panel Stat D Dimer Stat Lipase Stat Partial Thromboplastin Time Stat Prothrombin Time INR Stat Troponin & CK Cardiac Panel Stat 12/05/18 19:23 XR chest 1V Stat EKG-12 Lead Stat 12/05/18 19:39 US periph venous low extrem lt Stat 12/05/18 20:07 CT angio chest PE protocol Stat 12/05/18 21:52 Electrolytes Stat Discontinued Medications Sodium Chloride (Normal Saline 0.9%) 1,000 mls @ 1,000 mls/hr IV BOLUS ONE Stop: 12/05/18 20:48 Last Infusion: 12/05/18 21:43 Dose: 0 mls/hr Admin: 12/05/18 20:02 Dose: 1,000 mls/hr Vital Signs - 8 hr 12/05/18 19:07 12/05/18 20:45 12/05/18 22:40 Temperature 97.7 F Pulse Rate 97 H 77 77 Respiratory Rate 20 27 H 22 Blood Pressure 144/88 H 111/55 L Blood Pressure [Left Arm] 127/63 Pulse Oximetry 100 95 98 MDM - Arrhythmia/Palpitations Lab Data Attestation: I reviewed the patient's lab results. Result diagrams: 12/05/18 19:15 12/05/18 21:52 Lab Results 12/05/18 12/05/18 12/05/18 Range/Units 19:15 19:15 19:15 WBC 7.7 (4.5-11.0) X10^3/uL RBC 5.35 (4.5-5.9) X10^6/uL Hgb 16.9 (13.5-17.5) g/dL Hct 50.7 (41-53) % MCV 94.7 (80-100) fL MCH 31.6 (26-34) PG MCHC 33.3 (30-36) % RDW 12.9 (11.6-14.8) % Plt Count 187 (150-400) X10^3/uL Neut % (Auto) 67.7 (50-75) % Lymph % (Auto) 22.0 L (25-40) % Forrest % (Auto) 7.1 (3-14) % Eos % (Auto) 2.3 (2-4) % Baso % (Auto) 0.9 (0-2) % Neut # (Auto) 5200 (3804-7515) /uL Lymph # (Auto) 1700 (8060-5995) /uL Forrest # (Auto) 500 (0-900) /uL Eos # (Auto) 200 (0-450) /uL Baso # (Auto) 100 (0-100) /uL PT 10.5 (10.1-12.7) SECONDS INR 0.9 (0.9-1.3) APTT 44 H (26.4-36.2) SECONDS D-Dimer (<230) ng/mL Sodium 143 (137-145) mmol/L Potassium 5.6 H (3.4-5.1) mmol/L Chloride 107 (98-107) mmol/L Carbon Dioxide 24 (22-32) mmol/L BUN 18 (9-20) mg/dL Creatinine 1.20 (0.66-1.25) mg/dL Estimated GFR > 60.0 (>60) mL/min BUN/Creatinine Ratio 15.0 (6-22) Glucose 127 H (70-100) mg/dL Calcium 9.7 (8.4-10.2) mg/dL Total Bilirubin 0.9 (0.2-1.3) mg/dL AST 31 (17-59) IU/L ALT 10 L (21-72) IU/L Alkaline Phosphatase 65 (38-126) U/L Total Creatine Kinase 55 (55-170) U/L CK-MB (CK-2) TNP CK-MB (CK-2) Rel Index TNP Troponin I < 0.012 (0.01-0.034) ng/mL Total Protein 8.2 (6.3-8.2) g/dL Albumin 4.7 (3.5-5.0) g/dL Globulin 3.5 (1.7-4.1) g/dL Albumin/Globulin Ratio 1.3 (1.0-2.8) Lipase 118 (23-300) U/L 12/05/18 12/05/18 Range/Units 19:15 21:52 WBC (4.5-11.0) X10^3/uL RBC (4.5-5.9) X10^6/uL Hgb (13.5-17.5) g/dL Hct (41-53) % MCV (80-100) fL MCH (26-34) PG MCHC (30-36) % RDW (11.6-14.8) % Plt Count (150-400) X10^3/uL Neut % (Auto) (50-75) % Lymph % (Auto) (25-40) % Forrest % (Auto) (3-14) % Eos % (Auto) (2-4) % Baso % (Auto) (0-2) % Neut # (Auto) (1739-2483) /uL Lymph # (Auto) (2764-3839) /uL Forrest # (Auto) (0-900) /uL Eos # (Auto) (0-450) /uL Baso # (Auto) (0-100) /uL PT (10.1-12.7) SECONDS INR (0.9-1.3) APTT (26.4-36.2) SECONDS D-Dimer 483 H (<230) ng/mL Sodium 140 (137-145) mmol/L Potassium 4.7 (3.4-5.1) mmol/L Chloride 108 H (98-107) mmol/L Carbon Dioxide 25 (22-32) mmol/L BUN (9-20) mg/dL Creatinine (0.66-1.25) mg/dL Estimated GFR (>60) mL/min BUN/Creatinine Ratio (6-22) Glucose (70-100) mg/dL Calcium (8.4-10.2) mg/dL Total Bilirubin (0.2-1.3) mg/dL AST (17-59) IU/L ALT (21-72) IU/L Alkaline Phosphatase (38-126) U/L Total Creatine Kinase (55-170) U/L CK-MB (CK-2) CK-MB (CK-2) Rel Index Troponin I (0.01-0.034) ng/mL Total Protein (6.3-8.2) g/dL Albumin (3.5-5.0) g/dL Globulin (1.7-4.1) g/dL Albumin/Globulin Ratio (1.0-2.8) Lipase (23-300) U/L Imaging Data Chest x-ray: Radiologist's impression: Jany Hoover [address] [address] XRay Report Signed Patient: Jany Hoover LMR#: [id number] : 1980Acct:[id number] Age/Sex: 38 / MDate of Service: 12/05/18 Loc: ED Accession Number: [id number] Procedure: XR chest 1V Ordering Provider: Kelsey Beltran D.O. PROCEDURE: XR CHEST 1V INDICATIONS: chest pain TECHNIQUE: One view of the chest was acquired. COMPARISON: None. FINDINGS: Surgical changes and devices: None. Lungs and pleura: Lungs are clear. No pleural effusions or pneumothorax. Mediastinum: Mediastinal contours appear normal. Heart size is normal. Bones and chest wall: No suspicious bony lesions. Overlying soft tissues appear unremarkable. IMPRESSION: Chest without acute cardiopulmonary abnormalities. Dictated by: Bereket Geronimo M.D. on 12/05/2018 at 20:18 Approved by: Bereket Geronimo M.D. on 12/05/2018 at 20:20 Venous US: Radiologist's impression: [address] [address] Ultrasound Report Signed Patient: Jany Hoover LMR#: [id number] : 1980Acct:[id number] Age/Sex: 38 / MDate of Service: 12/05/18 Loc: ED Accession Number: [id number] Procedure: US periph venous low extrem lt Ordering Provider: Kelsey Beltran D.O. PROCEDURE: US PERIPH VENOUS LOW EXTREM LT INDICATIONS: PAIN, EDEMA TECHNIQUE: Real-time imaging, as well as color and pulse Doppler interrogation, were performed of the lower extremity deep veins from the inguinal ligament to the popliteal fossa. COMPARISON: None. FINDINGS: The common femoral, femoral and popliteal veins are normally compr essible, and free of intraluminal thrombus. Color and pulse Doppler demonstrate normal phasic intraluminal flow. There is normal augmentation response to distal compression maneuver. Of note, the distal left superficial femoral vein was not well-visualized secondary to body habitus. IMPRESSION: Negative for deep venous thrombosis of the left lower extremity. Dictated by: Bereket Geronimo M.D. on 12/05/2018 at 20:31 Approved by: Bereket Geronimo M.D. on 12/05/2018 at 20:31 CTA chest: Radiologist's impression: [address] [address] [address] Scan Report Signed Patient: Jany Hoover LMR#: [id number] : 1980Acct:[id number] Age/Sex: 38 / MDate of Service: 12/05/18 Loc: ED Accession Number: [id number] Procedure: CT angio chest PE protocol Ordering Provider: Kelsey Beltran D.O. PROCEDURE: CT ANGIO CHEST PE PROTOCOL INDICATIONS: palpitations, occasional SOB, sx in july, thigh swelling TECHNIQUE: After the administration of intravenous contrast, 2 mm thick sections acquired from the pulmonary apices to the posterior costophrenic angles. 3-dimensional maximum intensity projection (MIP) coronal and sagittal reformats were then acquired through the thorax. For radiation dose reduction, the following was used: automated exposure control, adjustment of mA and/or kV according to patient size. COMPARISON: None. FINDINGS: Image quality: Limited, suboptimal timing of contrast bolus. Pulmonary arteries: Pulmonary arteries are normal in size, and demonstrate no intraluminal filling defects to suggest central pulmonary embolism. However, study is limited due to suboptimal timing of contrast bolus within the pulmonary art eries. No CT evidence for acute right-sided heart strain. Lungs and pleura: Lungs demonstrate no acute air space disease, suspicious nodules, or mass lesions. No septal thickening. No septal nodularity. No pleural effusions or pneumothorax. Central and peripheral airways are patent. Mediastinum: Heart size is normal, without pericardial effusion. No mediastinal or hilar adenopathy. Thoracic aorta is normal in caliber and enhancement. Esophagus is normal in caliber, without hiatal hernia. Bones and chest wall: No suspicious bony lesions. Ribs and thoracic spine appear intact throughout. Thyroid gland is unremarkable. No axillary or supraclavicular adenopathy. Abdomen: Status post cholecystectomy. Visualized upper abdominal solid organs appear normal in the early arterial phase of enhancement. IMPRESSION: 1. Nondiagnostic evaluation secondary to suboptimal timing of contrast bolus in the pulmonary arterial system. However, no central filling defects or evidence for acute right-sided heart strain. 2. No acute cardiopulmonary abnormalities identified. 3. Status post cholecystectomy. Dictated by: Bereket Geronimo M.D. on 12/05/2018 at 21:33 Approved by: Bereket Geronimo M.D. on 12/05/2018 at 21:40 ECG Data Attestation: I personally reviewed and interpreted this ECG as follows: Prior ECG tracings: not available for review Interpretation: Sinus rhythm rate of 91 IA 180 QRS 102, QTC of [address] elevation or depression. S1, no Q1,T3 MDM Narrative Medical decision making narrative: Discussed with patient he has normal CBC, D- dimer is elevated, his chemistries show potassium of 5.6, glucose of 127. Troponin is negative with no other acute changes. Patient had repeat electrolytes after a L fluids and his potassium is improved to 4.7. Patient does have remote surgery in July, he is quite obese with some complaint of left thigh swelling although his vascular ultrasound is negative for DVT. Chest x- ray did not show acute finding. Discussed with patient he is open to doing a CTA to evaluate for PE. This was negative for large or central PA but was difficult study. Discussed with patient home very small blood clots but there are no other acute findings. Patient is comfortable with this. His back pain has returned. But it is his typical normal back pain. He is to return, he has not had his regular daily pain medication. Discharge Plan Departure Patient Disposition: Home Clinical Impression: Heart palpitations, Swelling of thigh Discharge Date/Time: 12/05/18 22:40 Interventions: ED Discharge Assessment Last Done: 12/05/18 22:40 Instructions: DI for Palpitations Activity Restrictions/Additional Instructions: Follow-up with your primary care physician in the next 2-3 days for recheck. Call for an appointment. Continue home medications as prescribed. Return to the emergency department for new or worsening symptoms, fevers greater 100.4 F, persistent vomiting, new chest pain, shortness of breath, passing out, swelling in your extremities or other new or concerning symptoms. Prescriptions: No Action lisinopril 20 MG tablet 20 mg PO QPM Qty: 0 RF: 0 gemfibrozil 600 MG tablet 600 mg PO BIDAC Qty: 0 RF: 0 metformin 850 MG tablet 850 mg PO TID Qty: 0 RF: 0 Jardiance 25 MG tablet 25 mg PO DAILY Qty: 0 RF: 0 pioglitazone 30 mg tablet 30 mg PO DAILY RF: 0 tizanidine 4 mg tablet 4 mg PO TID RF: 0 hydrocodone-acetaminophen 5-325 mg tablet 1 tab PO PRN PRN (Reason: pain) RF: 0 sildenafil (antihypertensive) 20 mg Tablet 20 mg PO TID RF: 0 dulaglutide 1.5 mg/0.5 mL pen injector 1.5 mg subcut QWEEK RF: 0 azelastine 137 mcg (0.1 %) Aerosol,Ragland 2 spray INTRANASAL BID PRN (Reason: Allergic Reaction) RF: 0 Combivent Respimat 20-100 mcg/actuation Mist 1 puff INHALATION QID RF: 0 meloxicam [Mobic] 7.5 mg tablet 15 mg PO DAILY RF: 0 diazepam [Valium] 5 mg tablet 7.5 mg PO Q6H RF: 0 methylprednisolone [Medrol (Michele)] 4 mg tablets,dose pack 1 tab PO DAILY RF: 0 hydrocodone-acetaminophen 5-325 mg tablet 1 tab PO Q4-6H PRN (Reason: pain) Qty: 40 RF: 0
[2018-12-05 19:32] LABS: Add Manual Diff / Slide Review NO; Basophils Absolute Auto 100 /uL (0-100); Basophils Percent Auto 0.9 % (0-2); Eosinophils Absolute Auto 200 /uL (0-450); Eosinophils Percent Auto 2.3 % (2-4); Hematocrit 50.7 % (41-53); Hemoglobin 16.9 g/dL (13.5-17.5); Lymphocytes Absolute Auto 1700 /uL (1100-4500); Mean Corpuscular HGB Conc 33.3 % (30-36); Mean Corpuscular Hemoglobin 31.6 PG (26-34); Mean Corpuscular Volume 94.7 fL (80-100); Monocytes Absolute Auto 500 /uL (0-900); Monocytes Percent Auto 7.1 % (3-14); Neutrophils Absolute Auto 5200 /uL (1500-7000); Neutrophils Percent Auto 67.7 % (50-75); Platelet Count 187 X10^3/uL (150-400); Red Blood Cell Count 5.35 X10^6/uL (4.5-5.9); Red Cell Distribution Width 12.9 % (11.6-14.8); White Blood Cell Count 7.7 X10^3/uL (4.5-11.0)
[2018-12-05 19:36] LABS: INR 0.9 (0.9-1.3); Prothrombin Time 10.5 SECONDS (10.1-12.7)
[2018-12-05 19:38] LABS: Alanine Aminotransferase 10 IU/L (21-72); Albumin 4.7 g/dL (3.5-5.0); Albumin Globulin Ratio 1.3 (1.0-2.8); Alkaline Phosphatase 65 U/L (38-126); Aspartate Aminotransferase 31 IU/L (17-59); Bilirubin Total 0.9 mg/dL (0.2-1.3); Blood Urea Nitrogen 18 mg/dL (9-20); Calcium 9.7 mg/dL (8.4-10.2); Carbon Dioxide 24 mmol/L (22-32); Chloride 107 mmol/L (98-107); Creatine Kinase 55 U/L (55-170); Estimated Glomerular Filt Rate > 60.0 mL/min (>60); Globulin 3.5 g/dL (1.7-4.1); Glucose 127 mg/dL (70-100); Lipase 118 U/L (23-300); Sodium 143 mmol/L (137-145); Total Protein 8.2 g/dL (6.3-8.2)
[2018-12-05 19:39] LABS: HEMOLYSIS 130 (0-50); PTT Partial Thromboplastin Tim 44 SECONDS (26.4-36.2)
--- NOTE | 2018-12-05 19:39 | DI.US.S_ITS ---
PROCEDURE: US PERIPH VENOUS LOW EXTREM LT INDICATIONS: PAIN, EDEMA TECHNIQUE: Real-time imaging, as well as color and pulse Doppler interrogation, were performed of the lower extremity deep veins from the inguinal ligament to the popliteal fossa. COMPARISON: None. FINDINGS: The common femoral, femoral and popliteal veins are normally compressible, and free of intraluminal thrombus. Color and pulse Doppler demonstrate normal phasic intraluminal flow. There is normal augmentation response to distal compression maneuver. Of note, the distal left superficial femoral vein was not well-visualized secondary to body habitus. IMPRESSION: Negative for deep venous thrombosis of the left lower extremity. Dictated by: Bereket Geronimo M.D. on 12/05/2018 at 20:31 Approved by: Bereket Geronimo M.D. on 12/05/2018 at 20:31
[2018-12-05 19:40] LABS: Potassium 5.6 mmol/L (3.4-5.1)
[2018-12-05 19:50] LABS: Troponin I < 0.012 ng/mL (0.01-0.034)
[2018-12-05 20:02] LABS: D Dimer 483 ng/mL (<230)
[2018-12-05] MEDS: SODIUM CHLORIDE 0.9% 1,000 ML 1000 ML IV (20:02)
--- NOTE | 2018-12-05 20:07 | DI.CT.S_ITS ---
PROCEDURE: CT ANGIO CHEST PE PROTOCOL INDICATIONS: palpitations, occasional SOB, sx in july, thigh swelling TECHNIQUE: After the administration of intravenous contrast, 2 mm thick sections acquired from the pulmonary apices to the posterior costophrenic angles. 3-dimensional maximum intensity projection (MIP) coronal and sagittal reformats were then acquired through the thorax. For radiation dose reduction, the following was used: automated exposure control, adjustment of mA and/or kV according to patient size. COMPARISON: None. FINDINGS: Image quality: Limited, suboptimal timing of contrast bolus. Pulmonary arteries: Pulmonary arteries are normal in size, and demonstrate no intraluminal filling defects to suggest central pulmonary embolism. However, study is limited due to suboptimal timing of contrast bolus within the pulmonary arteries. No CT evidence for acute right-sided heart strain. Lungs and pleura: Lungs demonstrate no acute air space disease, suspicious nodules, or mass lesions. No septal thickening. No septal nodularity. No pleural effusions or pneumothorax. Central and peripheral airways are patent. Mediastinum: Heart size is normal, without pericardial effusion. No mediastinal or hilar adenopathy. Thoracic aorta is normal in caliber and enhancement. Esophagus is normal in caliber, without hiatal hernia. Bones and chest wall: No suspicious bony lesions. Ribs and thoracic spine appear intact throughout. Thyroid gland is unremarkable. No axillary or supraclavicular adenopathy. Abdomen: Status post cholecystectomy. Visualized upper abdominal solid organs appear normal in the early arterial phase of enhancement. IMPRESSION: 1. Nondiagnostic evaluation secondary to suboptimal timing of contrast bolus in the pulmonary arterial system. However, no central filling defects or evidence for acute right-sided heart strain. 2. No acute cardiopulmonary abnormalities identified. 3. Status post cholecystectomy. Dictated by: Bereket Geronimo M.D. on 12/05/2018 at 21:33 Approved by: Bereket Geronimo M.D. on 12/05/2018 at 21:40
[2018-12-05 20:45] VITALS: BP 127/63; PULSE 77; RESP 27; O2SAT 95
[2018-12-05 22:12] LABS: Carbon Dioxide 25 mmol/L (22-32); Chloride 108 mmol/L (98-107); HEMOLYSIS < 15 (0-50); Potassium 4.7 mmol/L (3.4-5.1); Sodium 140 mmol/L (137-145)
[2018-12-05 22:40] VITALS: BP 111/55; PULSE 77; RESP 22; O2SAT 98
== END 2018-12-05 22:40 | disposition home or self-care (01) ==
PROVIDERS: Emergency Provider Emergency Medicine
DX: R00.2 Palpitations (principal); M79.89 Other specified soft tissue disorders
CPT/HCPCS: 36415; 36591; 71045; 71275; 80051; 80053; 82550; 83690; 84484; 85025; 85379; 85610; 85730; 93005; 93971; 96360; 96361; 99283; 99285; Q9967

== ENCOUNTER 2020-01-11 15:12 | Emergency (ER) | payer OTHER, MEDICAID, SELFPAY ==
[2020-01-11 15:39] VITALS: BP 142/82; PULSE 94; RESP 18; TEMP 36.2; O2SAT 98; BMI 57.7
--- NOTE | 2020-01-11 18:14 | ED_ITS ---
HPI - Back Pain/Injury General Chief Complaint: Back Pain/Injury Stated Complaint: lower back pain Time Seen by Provider: 01/11/20 18:14 Source: patient Limitations: no limitations History of Present Illness HPI Narrative: 39-year-old male daily smoker is morbidly obese with history of hypertension, diabetes, prior lumbar surgeries presents with his in the chief complaint of a sudden onset severe back pain that started just prior to his arrival. He waas bending over and felt a pop and then had severe midline pain. He denies any direct trauma or falls. He denies IVDA or blood thinner. He denies any radiation of the pain. He denies lower extremity weakness or footdrop. He denies numbness in his groin of trouble controlling bowel or bladder. His pain is significantly worse when he moves and improves with rest. MD Complaint: back pain and back injury Onset (ago): hour(s) Duration: constant Similar Symptoms Previously: Yes Location: lumbar spine Severity: severe Quality: sharp Radiation: none Relieving factors: immobilization Exacerbating factors: movement and walking Context: bending Associated symptoms: denies other symptoms Treatments prior to arrival: cold therapy Related Data Home Medications Medication Instructions Recorded Confirmed gemfibrozil 600 mg PO BIDAC #0 11/22/16 08/11/18 lisinopril 20 mg PO QPM #0 11/22/16 08/11/18 metformin 850 mg PO TID #0 11/22/16 08/11/18 Jardiance 25 mg PO DAILY #0 07/08/17 08/11/18 dulaglutide 1.5 mg SUBCUT QWEEK 07/03/18 08/11/18 hydrocodone-acetaminophen 1 tab PO PRN PRN 07/03/18 08/11/18 pioglitazone 30 mg PO DAILY 07/03/18 08/11/18 sildenafil (pulm.hypertension) 20 mg PO TID 07/03/18 08/11/18 tizanidine 4 mg PO TID 07/03/18 08/11/18 Combivent Respimat 1 puff INHALATION QID 08/04/18 08/11/18 azelastine 2 spray INTRANASAL BID PRN 08/04/18 08/11/18 diazepam [Valium] 7.5 mg PO Q6H 08/04/18 08/11/18 meloxicam [Mobic] 15 mg PO DAILY 08/04/18 08/11/18 methylprednisolone [Medrol (Michele)] 1 tab PO DAILY 08/11/18 08/11/18 Previous Rx's Medication Instructions Recorded hydrocodone-acetaminophen 1 tab PO Q4-6H PRN #40 tab 08/11/18 diazepam [Valium] 5 mg PO BID-QID PRN #10 tab 01/11/20 hydrocodone-acetaminophen 1 tab PO Q4-6H PRN #10 tab 01/11/20 ketorolac 10 mg PO Q6H PRN #14 tab 01/11/20 lidocaine [Lidoderm] 1 patch TOP DAILY #15 each 01/11/20 Allergies Allergy/AdvReac Type Severity Reaction Status Date / Time Penicillins [PENICILLINS] Allergy Severe Anaphylaxis Verified 01/11/20 15:43 Sulfa (Sulfonamide Allergy Severe Anaphylaxis Verified 01/11/20 15:43 Antibiotics) [SULFA (SULFONAMIDE ANTIBIOTICS)] Review of Systems Constitutional Constitutional: Denies chills, Denies fatigue, Denies fever(s), Denies frequent falls, Denies lethargy and Denies weakness Eyes Eyes: Denies change in vision, Denies eye discharge, Denies irritation and Denies loss of vision ENT Ears, Nose, Mouth, and Throat: Denies change in voice, Denies dizziness, Denies neck pain, Denies sore throat and Denies throat swelling Cardiovascular Cardiovascular: Denies chest pain, Denies irregular heart rhythm, Denies lightheadedness, Denies palpitations, Denies dyspnea, Denies dyspnea on exertion and Denies orthopnea Respiratory Respiratory: Denies cough, Denies dyspnea, Denies dyspnea on exertion and Denies wheezing Gastrointestinal Gastrointestinal: Denies abdominal pain, Denies change in bowel habits, Denies diarrhea, Denies nausea and Denies vomiting Musculoskeletal Musculoskeletal: Reports back pain, Denies neck pain and Denies numbness Integumentary/Breasts Skin/Breast: Denies pruritus, Denies erythema, Denies rash and Denies wounds Neurologic Neurologic: Denies behavioral changes, Denies confusion, Denies dizziness, Denies frequent falls, Denies loss of vision, Denies numbness and Denies weakness Psychiatric Psychiatric: Denies anxiety, Denies behavioral changes, Denies confusion, Denies depression, Denies homicidal ideation and Denies suicidal ideation Endocrine Endocrine: Denies fatigue, Denies flushing and Denies palpitations Hematologic/Lymphatic Hematologic/Lymphatic: Denies easy bruising Allergic/Immunologic Allergic/Immunologic: Denies urticaria, Denies throat swelling and Denies wheezing Patient History Medical History Chronic back pain (Acute) Current every day smoker (Acute) Diabetes (Acute) Fatty liver (Acute) Hypertension (Acute) Kidney stones (Acute) Numbness (Acute) Splenomegaly (Acute) Surgical History Hx of cholecystectomy (Acute) Social History marital status: household members: significant other Smoking Status: Current every day smoker Smoking Status: Current every day smoker tobacco type: cigarettes alcohol intake frequency: 0-2 drinks per day Substance Use Type: does not use Exam Narrative Exam Narrative: GENERAL: [39] year old patient appears stated age. Morbidly obese, obviously in pain, able to get out of the wheelchair and into the cart without assistance HEAD: Atraumatic. Normocephalic. EYES: Pupils equal round and reactive. Extraocular motions intact. No scleral icterus. No injection or drainage. ENT: Nose without bleeding, purulent drainage. Throat without erythema, tonsillar hypertrophy or exudate. Airway patent. NECK: Trachea midline. Non tender CARDIOVASCULAR: Regular rate and rhythm without murmurs, gallops, or rubs. RESPIRATORY: Clear to auscultation. Breath sounds equal bilaterally. No wheezes, rales, or rhonchi. GASTROINTESTINAL: Abdomen soft, non-tender, nondistended. EXTREMITIES: No edema or joint tenderness. BACK: Lower lumbar pain to palpation of midline and paraspinal musculature bilaterally. No saddle anesthesia. 1+ B/L LE reflexes. 5/5 strength NEURO: AOx3. SKIN: No rash or erythema of visible areas Initial Vital Signs Initial Vital Signs: Vital Signs Temperature 97.2 F L 01/11/20 15:39 Pulse Rate 94 H 01/11/20 15:39 Respiratory Rate 18 01/11/20 15:39 Blood Pressure 142/82 H 01/11/20 15:39 Pulse Oximetry 98 01/11/20 15:39 Course Course Course Narrative: attempt to get lumbar MRI, but patient girth prevented completion of the study. Suspicion for cauda equina very low. Return precautions given and questions answered to his apparent satisfaction Multiple etiologies of back pain considered including; Epidural abscess, cauda equina, mass occupying lesion, and other considered Orders Ordered: ED Orders 01/11/20 18:23 XR lumbar spine 2-3V Stat Discontinued Medications Hydrocodone Bitart/Acetaminophen (Vicodin 5/325 Prepack) 1 bottle MISC SEEINSTR ONE Stop: 01/11/20 20:38 Last Admin: 01/11/20 20:48 Dose: 1 bottle Documented by: ARMANDO Hydromorphone HCl (Dilaudid) 1 mg IM NOW ONE Stop: 01/11/20 18:24 Last Admin: 01/11/20 18:35 Dose: 1 mg Documented by: BRITTNEY Vital Signs Vital signs: Vital Signs - 8 hr 01/11/20 21:10 Pulse Rate 81 Respiratory Rate 18 Blood Pressure 138/82 Pulse Oximetry 97 Discharge Plan Departure Patient Disposition: Home Clinical Impression: Lumbar spine pain Discharge Date/Time: 01/11/20 21:12 Instructions: DI for Low Back Pain Activity Restrictions/Additional Instructions: *You have been diagnosed with [acute lumbar pain] *What to do: *Take medications as directed *Follow up with your primary care provider in 2-3 days, call for an appointment. Let them know you were seen in the Emergency Department and that we ask that you be seen in follow up *Return to ER if you should have any new, worsening or concerning symptoms such as loss of bowel or bladder control, weakness of one of your legs, or other bothersome symptoms Prescriptions: New hydrocodone-acetaminophen 5-325 mg tablet 1 tab PO Q4-6H PRN (Reason: pain) Qty: 10 RF: 0 ketorolac 10 mg tablet 10 mg PO Q6H PRN (Reason: pain) Qty: 14 RF: 0 lidocaine [Lidoderm] 5 % adhesive patch,medicated 1 patch TOP DAILY Qty: 15 RF: 0 diazepam [Valium] 5 mg tablet 5 mg PO BID-QID PRN (Reason: muscle spasm) Qty: 10 RF: 0 No Action lisinopril 20 MG tablet 20 mg PO QPM Qty: 0 RF: 0 gemfibrozil 600 MG tablet 600 mg PO BIDAC Qty: 0 RF: 0 metformin 850 MG tablet 850 mg PO TID Qty: 0 RF: 0 Jardiance 25 MG tablet 25 mg PO DAILY Qty: 0 RF: 0 pioglitazone 30 mg tablet 30 mg PO DAILY RF: 0 tizanidine 4 mg tablet 4 mg PO TID RF: 0 hydrocodone-acetaminophen 5-325 mg tablet 1 tab PO PRN PRN (Reason: pain) RF: 0 sildenafil (pulm.hypertension) 20 mg Tablet 20 mg PO TID RF: 0 dulaglutide 1.5 mg/0.5 mL pen injector 1.5 mg subcut QWEEK RF: 0 azelastine 137 mcg (0.1 %) Aerosol,[place] 2 spray INTRANASAL BID PRN (Reason: Allergic Reaction) RF: 0 Combivent Respimat 20-100 mcg/actuation Mist 1 puff INHALATION QID RF: 0 meloxicam [Mobic] 7.5 mg tablet 15 mg PO DAILY RF: 0 diazepam [Valium] 5 mg tablet 7.5 mg PO Q6H RF: 0 methylprednisolone [Medrol (Michele)] 4 mg tablets,dose pack 1 tab PO DAILY RF: 0 hydrocodone-acetaminophen 5-325 mg tablet 1 tab PO Q4-6H PRN (Reason: pain) Qty: 40 RF: 0 Referrals: [facility] [Outside]
--- NOTE | 2020-01-11 18:23 | DI.RAD.S_ITS ---
PROCEDURE: XR LUMBAR SPINE 2-3V INDICATIONS: severe lumbar pain TECHNIQUE: 3 views of the lumbar spine were acquired. COMPARISON: [facility], CR, XR LUMBAR SPINE 2-3V, 08/11/2018, 15:22. FINDINGS: Limited examination secondary to technical factors. Bones: 5 [id number] vertebrae are present. There is normal bony alignment. No vertebral body compression fractures. No suspicious bony lesions. Multilevel endplate osteophytes and disc space narrowing. Facet hypertrophy throughout the mid and lower lumbar spine. Soft tissues: Overlying bowel gas pattern is normal. No suspicious soft tissue calcifications. IMPRESSION: 1. Limited examination demonstrating multilevel degenerative disc and facet disease. 2. No acute fracture. No osseous lesion. If symptoms and/or clinical suspicion for pathology persist, further assessment with repeat, or advanced imaging (e.g., CT, MRI, or bone scan) may be helpful for further assessment. Dictated by: Larissa Varela M.D. on 01/11/2020 at 18:50 Approved by: Larissa Varela M.D. on 01/11/2020 at 18:51
[2020-01-11] MEDS: HYDROMORPHONE 1 MG INJ IM (18:35)
[2020-01-11] MEDS: HYDROCODONE/ACET 5/325 PREPACK 1 BOTTLE MISC (20:48)
[2020-01-11 21:10] VITALS: BP 138/82; PULSE 81; RESP 18; O2SAT 97
== END 2020-01-11 21:12 | disposition home or self-care (01) ==
PROVIDERS: Emergency Provider Emergency Medicine
DX: M54.5 Low back pain (principal)
CPT/HCPCS: 72100; 96372; 99283; J1170